=== PATIENT | female | born 1965 | race Caucasian/White ===

== ENCOUNTER 2022-07-09 09:36 | Outpatient (CLI) | payer SELFPAY ==
[2022-07-09 10:18] VITALS: BP 120/80; PULSE 65; RESP 16; TEMP 37.7; O2SAT 90
[2022-07-09] MEDS: TETANUS/DIPHTH/PERTUSSIS 0.5 ML SYRINGE IM (10:28)
[2022-07-09 11:30] LABS: Cholesterol* 244 mg/dL (90-199); HDL Cholesterol* 80 mg/dL (>=50); LDL Cholesterol Calculated 129 mg/dL (<100); Triglycerides* 176 mg/dL (40-149)
--- NOTE | 2022-07-09 15:08 | CRLHL7_ITS ---
[facility]
== END 2022-07-09 12:42 | disposition home or self-care (01) ==
LOC: MRI 09:42
PROVIDERS: PCP Internal Medicine; Visit Provider Internal Medicine
DX: R52 Pain, unspecified (principal)
CPT/HCPCS: 36415; 74150; 80061; 90715; 93005